=== PATIENT | female | born 1935 | race Caucasian/White ===

== ENCOUNTER 2021-10-28 15:53 | Observation (INO) | payer OTHER ==
[~2021-10-28] VITALS: Ht 160 cm; Wt 59.9 kg
[2021-10-28 16:03] VITALS: BP_SYST 102
[2021-10-28 16:22] LABS: EOSINOPHILS # (AUTO) 0.1 K/uL (0.0-0.4); EOSINOPHILS % (AUTO) 1.5 % (0.0-4.0); HEMATOCRIT 40.8 % (36-48); HEMOGLOBIN 13.8 g/dL (12.0-16.0); LYMPHOCYTES # (AUTO) 1.1 K/uL (1.0-5.5); LYMPHOCYTES % (AUTO) 24.5 % (20.5-51.5); MEAN CORPUSCULAR HEMOGLOBIN 31 pg (27-31); MEAN CORPUSCULAR HGB CONC 34 % (32-36); MEAN CORPUSCULAR VOLUME 92 fL (79.0-98.0); MONOCYTES # (AUTO) 0.3 K/uL (0.0-1.0); MONOCYTES % (AUTO) 7.9 % (1.7-9.3); NEUTROPHILS # (AUTO) 2.8 K/uL (1.8-7.7); NEUTROPHILS % (AUTO) 65.1 % (40.0-70.0); PLATELET COUNT (AUTO) 275 K/uL (130-430); RED BLOOD CELL COUNT(AUTO) 4.46 MIL/uL (4.2-6.2); RED CELL DISTRIBUTION WIDTH 13.6 % (9.0-15.0); WHITE BLOOD COUNT (AUTO) 4.3 K/uL (4.8-10.8)
[2021-10-28 17:16] LABS: ANION GAP 9 (5-15); CALCIUM 8.6 mg/dL (8.4-11.0); CHLORIDE 105 mmol/L (98-107); CREATININE 1.12 mg/dL (0.55-1.30); GLUCOSE 139 mg/dL (70-99); POTASSIUM 4.4 mmol/L (3.5-5.1); SODIUM SERUM 141 mmol/L (136-145); UREA NITROGEN, BLOOD 20 mg/dL (8-21)
[2021-10-28 17:25] LABS: ALANINE AMINOTRANSFERASE 20 U/L (12-78); ALBUMIN 3.5 g/dL (3.4-4.8); ASPARTATE AMINOTRANSFERASE 30 U/L (10-37); TOTAL BILIRUBIN 0.3 mg/dL (0.0-1.0)
[2021-10-28 17:55] LABS: ALCOHOL, BLOOD < 3 mg/dL (<10)
[2021-10-28 18:21] LABS: PROTHROMBIN TIME 9.9 SECS (9.5-12.5)
[2021-10-28] MEDS ORDERED: HYDROcodone/ACETAMIN 5-325 MG TAB (NORCO/ VICODIN) PO PRN (20:15)
[2021-10-28] MEDS ORDERED: ONDANSETRON HCL 4 MG/2 ML VIAL IVP PRN (20:15)
[2021-10-28] MEDS ORDERED: ALBUTEROL SULFATE 0.083% 2.5 MG/3 ML VIAL.NEB INH PRN (20:15)
[2021-10-28] MEDS ORDERED: ACETAMINOPHEN 325 MG TABLET PO PRN (20:15)
[2021-10-28] MEDS ORDERED: LORazepam 2 MG/ML VIAL IVP PRN (20:30)
[2021-10-28 20:41] LABS: BILIRUBIN,URINE NEGATIVE (NEGATIVE); BLOOD, URINE 1+ (NEGATIVE); CLARITY/URINE CLEAR (CLEAR); COLOR,URINE YELLOW (YELLOW); GLUCOSE,URINE NEGATIVE (NEGATIVE); KETONES,URINE NEGATIVE (NEGATIVE); LEUKOCYTE ESTERASE ,URINE TRACE (NEGATIVE); NITRITE, URINE NEGATIVE (NEGATIVE); PROTEIN URINE NEGATIVE (NEGATIVE)
[2021-10-28 21:04] LABS: BARBITURATE, URINE NEGATIVE (NEG <=200); BENZODIAZEPINE, URINE NEGATIVE (NEG <=150); CANNABINOID, URINE NEGATIVE (NEG <=50); COCAINE, URINE NEGATIVE (NEG <=150); METHAMPHETAMINES SCREEN,URINE NEGATIVE (NEG <=500); OPIATE, URINE NEGATIVE (NEG <=100); PHENCYCLIDINE SCREEN,URINE NEGATIVE (NEG <=25); UR TRICYCLIC ANTIDEPRESSANTS NEGATIVE (NEG <=300); URINE AMPHETAMINE NEGATIVE (NEG <=500); URINE METHADONE NEGATIVE (NEG <=200); URINE OXYCODONE SCREEN NEGATIVE (NEG <=100); URINE PROPOXYPHENE SCREEN NEGATIVE (NEG <=300)
[2021-10-28 21:51] LABS: BACTERIA,URINE None Seen /HPF (None Seen)
[2021-10-28 21:52] LABS: MUCUS,URINE None Seen /LPF (None Seen)
[2021-10-28 22:00] VITALS: BP_SYST 125
[2021-10-28 23:58] VITALS: BP_SYST 123
[2021-10-29 07:57] LABS: BASOPHILS % (AUTO) 0.9 % (0.0-2.0); EOSINOPHILS # (AUTO) 0.1 K/uL (0.0-0.4); EOSINOPHILS % (AUTO) 2.7 % (0.0-4.0); HEMATOCRIT 41.3 % (36-48); HEMOGLOBIN 13.6 g/dL (12.0-16.0); LYMPHOCYTES # (AUTO) 1.3 K/uL (1.0-5.5); LYMPHOCYTES % (AUTO) 25.7 % (20.5-51.5); MEAN CORPUSCULAR HEMOGLOBIN 30 pg (27-31); MEAN CORPUSCULAR HGB CONC 33 % (32-36); MEAN CORPUSCULAR VOLUME 92 fL (79.0-98.0); MONOCYTES # (AUTO) 0.5 K/uL (0.0-1.0); MONOCYTES % (AUTO) 9.9 % (1.7-9.3); NEUTROPHILS % (AUTO) 60.8 % (40.0-70.0); PLATELET COUNT (AUTO) 257 K/uL (130-430); RED BLOOD CELL COUNT(AUTO) 4.48 MIL/uL (4.2-6.2); RED CELL DISTRIBUTION WIDTH 13.5 % (9.0-15.0); WHITE BLOOD COUNT (AUTO) 4.9 K/uL (4.8-10.8)
[2021-10-29 08:04] LABS: ALANINE AMINOTRANSFERASE 28 U/L (12-78); ALBUMIN 3.2 g/dL (3.4-4.8); ANION GAP 7 (5-15); ASPARTATE AMINOTRANSFERASE 34 U/L (10-37); CALCIUM 8.8 mg/dL (8.4-11.0); CHLORIDE 106 mmol/L (98-107); GLUCOSE 86 mg/dL (70-99); SODIUM SERUM 141 mmol/L (136-145); TOTAL BILIRUBIN 0.2 mg/dL (0.0-1.0); UREA NITROGEN, BLOOD 21 mg/dL (8-21)
[2021-10-29] MEDS ORDERED: ASPIRIN 81 MG TAB.CHEW PO SCH (09:00)
[2021-10-29] MEDS ORDERED: ACET325C5 PO (09:48)
[2021-10-29] MEDS ORDERED: POLY17PO4 PO (09:48)
[2021-10-29] MEDS ORDERED: LACO100T2 PO (09:48)
[2021-10-29] MEDS ORDERED: PRO40 PO (09:48)
[2021-10-29] MEDS ORDERED: LEVE750T4 PO (09:48)
[2021-10-29] MEDS ORDERED: MOM PO (09:48)
[2021-10-29] MEDS ORDERED: ACET-2634 PO (09:48)
[2021-10-29] MEDS ORDERED: BISA10SU61 RC (09:48)
[2021-10-29] MEDS ORDERED: DOCU-144 PO (09:48)
[2021-10-29] MEDS ORDERED: LOVI40 SQ (09:48)
[2021-10-29] MEDS ORDERED: SENN8.6T19 PO (09:48)
[2021-10-29] MEDS ORDERED: VITD400 PO (09:48)
[2021-10-29] MEDS ORDERED: LACT10SO6 PO (09:48)
[2021-10-29] MEDS ORDERED: METH-634 PO (09:48)
[2021-10-29 11:24] VITALS: BP_SYST 142
[2021-10-29 13:05] VITALS: BP_SYST 145
[2021-10-29] MEDS ORDERED: LACOSAMIDE 100 MG TABLET PO SCH (21:00)
[2021-10-30] MEDS ORDERED: levETIRAcetam 500 MG TABLET PO SCH (09:00)
== END 2021-10-29 14:42 ==
LOC: SED 15:53 → STU 20:10 → INTOOBSV 20:10 → STU 21:59
PROVIDERS: ADMIT Internal Medicine Hospice and Palliative Medicine; ATTEND Internal Medicine Hospice and Palliative Medicine
DX: R07.89 Other chest pain (principal); Z20.822 Contact with and (suspected) exposure to COVID-19; G40.909 Epilepsy, unspecified, not intractable, without status epilepticus; I10 Essential (primary) hypertension; F03.90 Unspecified dementia, unspecified severity, without behavioral disturbance, psychotic disturbance, mood disturbance, and anxiety; Z90.710 Acquired absence of both cervix and uterus; Z86.79 Personal history of other diseases of the circulatory system; Z96.649 Presence of unspecified artificial hip joint; Z79.899 Other long term (current) drug therapy
CPT/HCPCS: 36415 ×2; 36600; 71045; 71275; 76376; 80053 ×2; 80307; 81000; 82803; 83605; 83880; 84484; 85025 ×2; 85379; 85610; 85730; 87040; 87081; 87426; 93005 ×2; 93306; 99285; G0378 ×2; G0482; Q9967

== ENCOUNTER 2022-02-26 14:46 | Emergency (ER) | payer OTHER ==
[~2022-02-26] VITALS: Ht 157.5 cm; Wt 54.4 kg
[~2022-02-26 14:46] MED LIST: ACET-2634 PO; ACET325C5 PO; BISA10SU61 RC; DOCU-144 PO; LACO100T2 PO; LACT10SO6 PO; LEVE750T4 PO; LOVI40 SQ; METH-634 PO; MOM PO; POLY17PO4 PO; PRO40 PO; SENN8.6T19 PO; VITD400 PO
[2022-02-26 14:50] VITALS: BP_SYST 133
[2022-02-26 15:26] VITALS: BP_SYST 99
--- NOTE | 2022-02-26 15:32 | NUR ---
BIBA WITH C/C OF S/P SEIZURE FROM HOME. PT AAOX2, POST ICTAL, NAD NOTED. FAMILY CALLED 911 WHEN PT HAD A WITNESSED SEIZURE FOR APPROXIMATELY 15 SECONDS. PRESENTS WITH FOAM CAST TO RIGHT ARM. RIGHT WRIST APPEARS DISLOCTED. REPORTS PAIN FROM RIGHT ARM AND SHOULDER. HEMATOMA AND SMALL LACERATION TO LEFT FOREHEAD AREA. PT PENDING BED PLACEMENT.
[2022-02-26 16:41] LABS: ANION GAP 8 (5-15); CALCIUM 9.4 mg/dL (8.4-11.0); CHLORIDE 105 mmol/L (98-107); CREATININE 0.91 mg/dL (0.55-1.30); GLUCOSE 94 mg/dL (70-99); POTASSIUM 3.8 mmol/L (3.5-5.1); SODIUM SERUM 141 mmol/L (136-145); UREA NITROGEN, BLOOD 26 mg/dL (8-21)
[2022-02-26 16:47] LABS: ALANINE AMINOTRANSFERASE 23 U/L (12-78); ALBUMIN 3.5 g/dL (3.4-4.8); ASPARTATE AMINOTRANSFERASE 30 U/L (10-37); TOTAL BILIRUBIN 0.5 mg/dL (0.0-1.0)
--- NOTE | 2022-02-26 17:50 | NUR ---
[id number]=Nofi,RN First contact. Pt on monitor. Awaiting provider for next plan.
--- NOTE | 2022-02-26 17:52 | NUR ---
Splint applied to R wrist per Dr. Sims' request. Also wound to forehead cleansed and dermabond applied by physician.
--- NOTE | 2022-02-26 18:20 | NUR ---
Unable to obtain iv access. Failed iv attempt x 2. Pt now refuses iv.
[2022-02-26 19:09] LABS: RED BLOOD CELL COUNT(AUTO) 4.22 MIL/uL (4.2-6.2); WHITE BLOOD COUNT (AUTO) 5.8 K/uL (4.8-10.8)
[2022-02-26 19:10] LABS: BASOPHILS # (AUTO) 0.1 K/uL (0.0-0.2); BASOPHILS % (AUTO) 0.9 % (0.0-2.0); EOSINOPHILS # (AUTO) 0.1 K/uL (0.0-0.4); EOSINOPHILS % (AUTO) 1.3 % (0.0-4.0); HEMATOCRIT 38.9 % (36-48); HEMOGLOBIN 13.1 g/dL (12.0-16.0); LYMPHOCYTES # (AUTO) 0.9 K/uL (1.0-5.5); LYMPHOCYTES % (AUTO) 15.1 % (20.5-51.5); MEAN CORPUSCULAR HEMOGLOBIN 31 pg (27-31); MEAN CORPUSCULAR HGB CONC 34 % (32-36); MEAN CORPUSCULAR VOLUME 92 fL (79.0-98.0); MONOCYTES # (AUTO) 0.5 K/uL (0.0-1.0); MONOCYTES % (AUTO) 7.9 % (1.7-9.3); NEUTROPHILS # (AUTO) 4.4 K/uL (1.8-7.7); NEUTROPHILS % (AUTO) 74.8 % (40.0-70.0); PLATELET COUNT (AUTO) 207 K/uL (130-430); RED CELL DISTRIBUTION WIDTH 13.9 % (9.0-15.0)
--- NOTE | 2022-02-26 19:20 | NUR ---
Received report from LESIA Devries; assuming care of patient at this time.
--- NOTE | 2022-02-26 20:20 | NUR ---
Patient's son, Christopher Goodman, was called at [phone] to picker and packer patient. Patient's son was advised she is ready for discharge. Patient's son stated he would be at ED to picker and packer his mother in approx 15 mins. ER MD Norton notified.
[2022-02-26 21:00] VITALS: BP_SYST 154
--- NOTE | 2022-02-26 21:00 | NUR ---
Patient given written and verbal discharge instructions and verbalizes understanding. ER MD discussed with patient the results and treatment provided. Patient in stable condition. ID arm band removed. Patient educated on pain management and to follow up with PMD. Pain Scale 0/10. Opportunity for questions provided and answered. Patient A/Ox4, VSS, Resp even and unlabored. Patient in stable condition upon discharge. Patient's son accompanied patient upon discharge.
== END 2022-02-26 21:00 | disposition home or self-care (01) ==
LOC: SED 14:46
DX: S01.81XA Laceration without foreign body of other part of head, initial encounter (principal); S63.501A Unspecified sprain of right wrist, initial encounter; R56.9 Unspecified convulsions; Z88.1 Allergy status to other antibiotic agents; Z88.2 Allergy status to sulfonamides; Z79.899 Other long term (current) drug therapy; X58.XXXA Exposure to other specified factors, initial encounter; Y93.89 Activity, other specified; Y92.89 Other specified places as the place of occurrence of the external cause; Y99.8 Other external cause status
CPT/HCPCS: 36415; 70450-TC; 71045; 76376; 80053; 84484; 85025; 93005; 99285

== ENCOUNTER 2022-10-13 15:00 | Inpatient (IN) | payer OTHER ==
[~2022-10-13] VITALS: Ht 165.1 cm; Wt 67.6 kg
[2022-10-13 15:00] VITALS: BP_SYST 139
[2022-10-13] MEDS ORDERED: MORPHINE 4 MG INJ. 4 MG/ML VIAL IVP ONE ×2 (16:00→23:30)
[2022-10-13] MEDS ORDERED: NITROGLYCERIN 1 INCH (GM) OINT. TP ONE ×2 (16:00→23:30)
[2022-10-13 16:13] LABS: BASOPHILS % (AUTO) 0.7 % (0.0-2.0); EOSINOPHILS # (AUTO) 0.1 K/uL (0.0-0.4); EOSINOPHILS % (AUTO) 2.1 % (0.0-4.0); HEMATOCRIT 37.2 % (36-48); HEMOGLOBIN 12.5 g/dL (12.0-16.0); LYMPHOCYTES # (AUTO) 1.5 K/uL (1.0-5.5); LYMPHOCYTES % (AUTO) 27.4 % (20.5-51.5); MEAN CORPUSCULAR HEMOGLOBIN 32 pg (27-31); MEAN CORPUSCULAR HGB CONC 34 % (32-36); MEAN CORPUSCULAR VOLUME 94 fL (79.0-98.0); MONOCYTES # (AUTO) 0.5 K/uL (0.0-1.0); MONOCYTES % (AUTO) 8.1 % (1.7-9.3); NEUTROPHILS # (AUTO) 3.5 K/uL (1.8-7.7); NEUTROPHILS % (AUTO) 61.7 % (40.0-70.0); PLATELET COUNT (AUTO) 192 K/uL (130-430); RED BLOOD CELL COUNT(AUTO) 3.97 MIL/uL (4.2-6.2); RED CELL DISTRIBUTION WIDTH 14.7 % (9.0-15.0); WHITE BLOOD COUNT (AUTO) 5.6 K/uL (4.8-10.8)
[2022-10-13 16:25] LABS: ANION GAP 6 (5-15); CALCIUM 8.5 mg/dL (8.4-11.0); CHLORIDE 103 mmol/L (98-107); CREATININE 0.88 mg/dL (0.55-1.30); GLUCOSE 101 mg/dL (70-99); UREA NITROGEN, BLOOD 28 mg/dL (8-21)
[2022-10-13 16:35] LABS: ALANINE AMINOTRANSFERASE 22 U/L (12-78); ASPARTATE AMINOTRANSFERASE 23 U/L (10-37); TOTAL BILIRUBIN 0.3 mg/dL (0.0-1.0)
[2022-10-13 16:36] LABS: ALBUMIN 3.5 g/dL (3.4-4.8)
[2022-10-13] MEDS ORDERED: MULT-1117 PO (18:47)
[2022-10-13 20:41] VITALS: BP_SYST 154
[2022-10-13] MEDS: LOSARTAN POTASSIUM 50 MG TABLET (COZAAR) PO SCH (21:50)
[2022-10-14] VITALS: BP_SYST 140
[2022-10-14 04:30] VITALS: BP_SYST 110
[2022-10-14] MEDS: LOSARTAN POTASSIUM 50 MG TABLET (COZAAR) PO SCH ×2 (08:14→21:39)
[2022-10-14 08:15] VITALS: BP_SYST 145
[2022-10-14] MEDS: ASPIRIN 81 MG TAB.CHEW PO SCH (08:15)
[2022-10-14] MEDS ORDERED: BISACODYL 10 MG/SUPPOSITORY RC PRN (09:00)
[2022-10-14] MEDS ORDERED: DIATR MEGLU/DIATRIZ SOD 30 ML SOLUTION PO ONE (09:35)
[2022-10-14] MEDS: LACOSAMIDE 100 MG TABLET PO SCH (10:11)
[2022-10-14] MEDS: levETIRAcetam 500 MG TABLET PO SCH ×2 (10:12→21:03)
[2022-10-14] MEDS: PANTOPRAZOLE SODIUM 40 MG TAB PO SCH (10:12)
[2022-10-14] MEDS: ENOXAPARIN SODIUM 40 MG/0.4 ML SYRINGE SQ SCH (10:13)
[2022-10-14] MEDS: POLYETHYLENE GLYCOL 3350, 17 GM/ POWD.PACK PO SCH (10:13)
[2022-10-14] MEDS ORDERED: traMADol HCL HCL 50 MG TABLET (ULTRAM) PO PRN (11:15)
[2022-10-14 16:00] VITALS: BP_SYST 132
[2022-10-14 20:00] VITALS: BP_SYST 122
[2022-10-15] VITALS: BP_SYST 115
[2022-10-15] MEDS: traMADol HCL HCL 50 MG TABLET (ULTRAM) PO SCH ×4 (00:07→18:00)
[2022-10-15 05:33] LABS: BASOPHILS % (AUTO) 0.8 % (0.0-2.0); EOSINOPHILS # (AUTO) 0.1 K/uL (0.0-0.4); EOSINOPHILS % (AUTO) 2.4 % (0.0-4.0); HEMATOCRIT 39.9 % (36-48); HEMOGLOBIN 13.2 g/dL (12.0-16.0); LYMPHOCYTES # (AUTO) 1.8 K/uL (1.0-5.5); LYMPHOCYTES % (AUTO) 33.5 % (20.5-51.5); MEAN CORPUSCULAR HEMOGLOBIN 31 pg (27-31); MEAN CORPUSCULAR HGB CONC 33 % (32-36); MEAN CORPUSCULAR VOLUME 94 fL (79.0-98.0); MONOCYTES # (AUTO) 0.5 K/uL (0.0-1.0); MONOCYTES % (AUTO) 9.3 % (1.7-9.3); PLATELET COUNT (AUTO) 208 K/uL (130-430); RED BLOOD CELL COUNT(AUTO) 4.24 MIL/uL (4.2-6.2); RED CELL DISTRIBUTION WIDTH 14.5 % (9.0-15.0); WHITE BLOOD COUNT (AUTO) 5.5 K/uL (4.8-10.8)
[2022-10-15 06:08] LABS: ANION GAP 7 (5-15); CHLORIDE 101 mmol/L (98-107); CREATININE 0.77 mg/dL (0.55-1.30); GLUCOSE 96 mg/dL (70-99); UREA NITROGEN, BLOOD 31 mg/dL (8-21)
[2022-10-15 08:00] VITALS: BP_SYST 151
[2022-10-15] MEDS: POLYETHYLENE GLYCOL 3350, 17 GM/ POWD.PACK PO SCH (08:55)
[2022-10-15] MEDS: LACOSAMIDE 100 MG TABLET PO SCH (08:55)
[2022-10-15] MEDS: ENOXAPARIN SODIUM 40 MG/0.4 ML SYRINGE SQ SCH (08:55)
[2022-10-15] MEDS: ASPIRIN 81 MG TAB.CHEW PO SCH (08:55)
[2022-10-15] MEDS: levETIRAcetam 500 MG TABLET PO SCH ×2 (08:56→21:18)
[2022-10-15] MEDS: LOSARTAN POTASSIUM 50 MG TABLET (COZAAR) PO SCH ×2 (08:56→21:19)
[2022-10-15] MEDS: PANTOPRAZOLE SODIUM 40 MG TAB PO SCH (08:56)
[2022-10-15 11:44] VITALS: BP_SYST 109
[2022-10-15] MEDS ORDERED: ALPRAZolam 0.25 MG TABLET PO PRN (12:30)
[2022-10-15] MEDS ORDERED: LORazepam 2 MG/ML VIAL IVP ONE (13:00)
[2022-10-15] MEDS ORDERED: ALBUTEROL SULFATE 0.083% 2.5 MG/3 ML VIAL.NEB INH ONE (13:00)
[2022-10-15] MEDS ORDERED: DULoxetine HCL 20 MG CAPSULE.DR PO ONE (13:00)
[2022-10-15] MEDS ORDERED: LORazepam 1 MG TABLET PO ONE (13:30)
[2022-10-15 13:45] VITALS: BP_SYST 166
[2022-10-15 16:25] VITALS: BP_SYST 142
[2022-10-15 20:00] VITALS: BP_SYST 151
[2022-10-16] VITALS: BP_SYST 148
[2022-10-16] MEDS: traMADol HCL HCL 50 MG TABLET (ULTRAM) PO SCH ×4 (00:24→19:36)
[2022-10-16 04:00] VITALS: BP_SYST 146
[2022-10-16 08:10] VITALS: BP_SYST 129
[2022-10-16] MEDS: ENOXAPARIN SODIUM 40 MG/0.4 ML SYRINGE SQ SCH (09:00)
[2022-10-16] MEDS ORDERED: DULoxetine HCL 20 MG CAPSULE.DR PO SCH (09:00)
[2022-10-16] MEDS: ASPIRIN 81 MG TAB.CHEW PO SCH (11:34)
[2022-10-16] MEDS: LACOSAMIDE 100 MG TABLET PO SCH (11:35)
[2022-10-16] MEDS: PANTOPRAZOLE SODIUM 40 MG TAB PO SCH (11:35)
[2022-10-16] MEDS: levETIRAcetam 500 MG TABLET PO SCH (11:35)
[2022-10-16] MEDS: POLYETHYLENE GLYCOL 3350, 17 GM/ POWD.PACK PO SCH (11:36)
[2022-10-16] MEDS: LOSARTAN POTASSIUM 50 MG TABLET (COZAAR) PO SCH (11:45)
[2022-10-16 12:47] VITALS: BP_SYST 144
[2022-10-16 16:30] VITALS: BP_SYST 110
[2022-10-16 18:49] VITALS: BP_SYST 133
== END 2022-10-16 21:14 | disposition home health service (06) | DRG 392 ==
LOC: SED 15:00 → STU 19:46
PROVIDERS: ADMIT Specialist; ATTEND Specialist
DX: R10.9 Unspecified abdominal pain (principal); F03.93 Unspecified dementia, unspecified severity, with mood disturbance; F33.1 Major depressive disorder, recurrent, moderate; K59.09 Other constipation; R07.89 Other chest pain; I45.10 Unspecified right bundle-branch block; Z20.822 Contact with and (suspected) exposure to COVID-19; I10 Essential (primary) hypertension; X58.XXXA Exposure to other specified factors, initial encounter; G40.909 Epilepsy, unspecified, not intractable, without status epilepticus; Z79.1 Long term (current) use of non-steroidal anti-inflammatories (NSAID); Z79.899 Other long term (current) drug therapy; Z86.73 Personal history of transient ischemic attack (TIA), and cerebral infarction without residual deficits; Z88.8 Allergy status to other drugs, medicaments and biological substances; Z90.710 Acquired absence of both cervix and uterus; Y93.89 Activity, other specified; Y92.89 Other specified places as the place of occurrence of the external cause; Y99.8 Other external cause status
CPT/HCPCS: 36415; 71045; 76376; 80048; 80053; 83880; 84484; 85025; 85379; 93005; 94640; 94760; 96374; 99285; G0378; J1650; J2270; J7613; Q9964